=== PATIENT | female | born 1935 | race Caucasian/White ===

== ENCOUNTER → 2018-02-09 | Outpatient (CLI) | payer MEDICARE, OTHER ==
--- NOTE | 2018-02-10 09:42 | XCELERA REPORT ---
[address] [address] Transthoracic Echocardiogram Report Name: AMBAR ENCINAS Age: 82 yrs Gender: Female : 1935 Patient Status: Outpatient Patient Location: Study Date: 02/09/2018 09:38 AM Height: 61 in Weight: 180 lb BSA: 1.8 m2 Procedure: A complete two-dimensional transthoracic echocardiogram was performed (2D, M-mode, spectral and color flow Doppler). The study was technically difficult with many images being suboptimal in quality. Reason For Study: SOB Ordering Physician: MIESHA ERNST Performed By: Hanh Mccullough Interpretation Summary The study was technically difficult with many images being suboptimal in quality. LV diastolic function could not be adequately assessed due to atrial fibrilation. Left ventricular systolic function is borderline reduced. The Ejection Fraction estimate is 50-55% The left ventricle is grossly normal size. There is mild concentric left ventricular hypertrophy. Regional wall motion abnormalities cannot be excluded due to limited visualization. The right ventricle is grossly normal size. The right ventricular systolic function is normal. The right atrium is mild to moderately dilated. The left atrium is mildly dilated. There is no mitral valve stenosis. There is a trace amount of mitral regurgitation There is no aortic valve stenosis There is a mild to moderate amount of aortic regurgitation There is a trace or physiologic amount of tricuspid regurgitation Tricuspid regurgitation jet envelope not well defined to measure RV systolic pressure accurately. The aortic root is not well visualized but is probably normal size. The inferior vena cava appeared normal and decreased > 50% with respiration (RAP 5-10 mmHg) There is no pericardial effusion. MMode/2D Measurements & Calculations RVDd: 2.7 cm LVIDd: 4.2 cm FS: 27.9 % Ao root diam: 2.8 cm IVSd: 1.2 cm LVIDs: 3.0 cm EDV(Teich): 79.2 ml LVPWd: 1.1 cm ESV(Teich): 36.1 ml Ao root area: 6.1 cm2 EF(Teich): 54.5 % LVOT diam: 1.9 cm LVOT area: 2.8 cm2 Doppler Measurements & Calculations MV E max mirella: MV dec slope: Ao V2 max: AI max mirella: 82.9 cm/sec 418.0 cm/sec2 145.0 cm/sec 425.6 cm/sec MV A max mirella: MV dec time: Ao max PG: AI max P.6 cm/sec 0.20 sec 8.4 mmHg 72.4 mmHg MV E/A: 2.8 FRED(V,D): 2.3 cm2AI dec slope: 112.1 cm/sec2 AI P1/2t: 1112 msec LV V1 max PG: PA V2 max: TR max mirella: 5.9 mmHg 62.8 cm/sec 239.5 cm/sec LV V1 max: PA max P.6 mmHg TR max P.2 cm/sec 23.1 mmHg Left Ventricle The left ventricle is grossly normal size. There is mild concentric left ventricular hypertrophy. Left ventricular systolic function is borderline reduced. The Ejection Fraction estimate is 50-55%. LV diastolic function could not be adequately assessed due to atrial fibrilation. Regional wall motion abnormalities cannot be excluded due to limited visualization. Right Ventricle The right ventricle is grossly normal size. There is normal right ventricular wall thickness. The right ventricular systolic function is normal. Atria The right atrium is mild to moderately dilated. The left atrium is mildly dilated. Interarterial septum not well visualized and not well dopplered. Cannot comment on ASD/PFO presence. Mitral Valve The mitral valve is grossly normal. There is no mitral valve stenosis. There is a trace amount of mitral regurgitation. Aortic Valve The aortic valve is grossly normal. There is no aortic valve stenosis. There is a mild to moderate amount of aortic regurgitation. Tricuspid Valve The tricuspid valve is not well visualized, but is grossly normal. There is no tricuspid stenosis. There is a trace or physiologic amount of tricuspid regurgitation. Tricuspid regurgitation jet envelope not well defined to measure RV systolic pressure accurately. Pulmonic Valve The pulmonic valve is not well visualized. Great Vessels The aortic root is not well visualized but is probably normal size. The inferior vena cava appeared normal and decreased > 50% with respiration (RAP 5-10 mmHg). Effusions There is no pericardial effusion. : MIESHA ERNST > Desire Brooks
== END ==
LOC: SP 09:24
PROVIDERS: ATTEND Specialist
DX: R06.02 Shortness of breath (principal)
CPT/HCPCS: 93306

== ENCOUNTER → 2018-09-23 | Outpatient (CLI) | payer MEDICARE, OTHER ==
--- NOTE | 2018-09-23 13:51 | RADIOLOGY REPORT (SQ) ---
EXAM DESCRIPTION: CHEST PA/LATERAL COMPLETED DATE/TIME: 09/23/2018 1:43 pm REASON FOR STUDY: CHEST PAIN,UNSPECIFIED TYPE; LEFT ARM PAIN COMPARISON: None. EXAM PARAMETERS: NUMBER OF VIEWS: two views TECHNIQUE: Digital Frontal and Lateral radiographic views of the chest acquired. RADIATION DOSE: NA LIMITATIONS: none FINDINGS: LUNGS AND PLEURA: No opacities, masses or pneumothorax. No pleural effusion. MEDIASTINUM AND HILAR STRUCTURES: No masses or contour abnormalities. HEART AND VASCULAR STRUCTURES: Cardiac silhouette is enlarged. A tortuous thoracic aorta is identifi ed. BONES: No acute findings. HARDWARE: None in the chest. OTHER: No other significant finding. IMPRESSION: Cardiomegaly. No acute consolidations or pleural effusions are identified. TECHNICAL DOCUMENTATION: JOB ID: [id number] [employer]- All Rights Reserved Reading location - IP/workstation name: [email or web address]
--- NOTE | 2018-09-23 13:53 | RADIOLOGY REPORT (SQ) ---
EXAM DESCRIPTION: SHOULDER LEFT 2 OR MORE VIEWS COMPLETED DATE/TIME: 09/23/2018 1:44 pm REASON FOR STUDY: CHEST PAIN,UNSPECIFIED TYPE; LEFT ARM PAIN R07.9 CHEST PAIN, UNSPECIFIED M79.602 PAIN IN LEFT ARM COMPARISON: None. NUMBER OF VIEWS: Three views. TECHNIQUE: Internal rotation, external rotation, and Y view images acquired of the left shoulder. LIMITATIONS: None. FINDINGS: MINERALIZATION: Normal. BONES: No acute fracture or dislocation. No worrisome bone lesions. JOINTS: Degenerative changes are identified at the level of the glenohumeral joint. VISUALIZED LUNGS AND RIBS: No pneumothorax. No rib fracture. SOFT TISSUES: No radiopaque foreign body. OTHER: No other significant finding. IMPRESSION: Degenerative changes without evidence for fracture. TECHNICAL DOCUMENTATION: JOB ID: [id number] [employer]- All Rights Reserved Reading location - IP/workstation name: [email or web address]
[2018-09-23 14:12] LABS: ABSOLUTE EOSINOPHILS # (AUTO) 0.2 10^3/uL (0.0-0.6); ABSOLUTE LYMPHOCYTES (AUTO) 1.5 10^3/uL (0.5-4.7); ABSOLUTE MONOCYTES (AUTO) 0.5 10^3/uL (0.1-1.4); ABSOLUTE NEUT (AUTO) 4.6 10^3/uL (1.7-8.2); BASOPHILS % (AUTO) 0.6 % (0-2); EOSINOPHILS % (AUTO) 2.7 % (0-6); HEMATOCRIT 38.1 % (36.0-47.0); HEMOGLOBIN 12.7 g/dL (12.0-15.5); LYMPHOCYTES % (AUTO) 22.4 % (13-45); MEAN CORPUSCULAR HEMOGLOBIN 29.8 pg (27.0-33.4); MEAN CORPUSCULAR HGB CONC 33.2 g/dL (32.0-36.0); MEAN CORPUSCULAR VOLUME 90 fl (80-97); MONOCYTES % (AUTO) 6.8 % (3-13); PLATELET COUNT 181 10^3/uL (150-450); RED BLOOD COUNT 4.24 10^6/uL (3.72-5.28); RED CELL DISTRIBUTION WIDTH 13.8 % (11.5-14.0); SEGMENTED NEUTROPHILS % (AUTO) 67.5 % (42-78); TOTAL CELLS COUNTED % (AUTO) 100 %; WHITE BLOOD COUNT 6.8 10^3/uL (4.0-10.5)
[2018-09-23 14:34] LABS: ALANINE AMINOTRANSFERASE 15 U/L (9-52); ALBUMIN 3.6 g/dL (3.5-5.0); ALKALINE PHOSPHATASE 93 U/L (38-126); ANION GAP 8 (5-19); ASPARTATE AMINO TRANSFERASE 20 U/L (14-36); BILIRUBIN,DIRECT 0.3 mg/dL (0.0-0.4); BILIRUBIN,TOTAL 0.9 mg/dL (0.2-1.3); BLOOD UREA NITROGEN 23 mg/dL (7-20); CALCIUM 9.7 mg/dL (8.4-10.2); CARBON DIOXIDE 28 mmol/L (22-30); CHLORIDE 107 mmol/L (98-107); CREATINE KINASE 40 U/L (30-135); GLUCOSE 92 mg/dL (75-110); POTASSIUM 4.3 mmol/L (3.6-5.0); SODIUM 143.2 mmol/L (137-145); TOTAL PROTEIN 6.6 g/dL (6.3-8.2)
[2018-09-23 14:43] LABS: CREATINE KINASE MB 0.46 ng/mL (<4.55)
[2018-09-23 14:50] LABS: TROPONIN I < 0.012 ng/mL
== END ==
LOC: OD 12:59
PROVIDERS: ATTEND Physician Assistant
DX: R07.9 Chest pain, unspecified (principal); M79.602 Pain in left arm
CPT/HCPCS: 36415; 71046; 80053; 82550; 82553; 84484; 85025

== ENCOUNTER → 2018-12-11 | Outpatient (CLI) | payer MEDICARE, OTHER ==
--- NOTE | 2018-12-11 10:16 | RADIOLOGY REPORT (SQ) ---
EXAM DESCRIPTION: T SPINE AP/LAT COMPLETED DATE/TIME: 12/11/2018 10:08 am REASON FOR STUDY: M54.4, LOW BACK PAIN M54.5 LOW BACK PAIN COMPARISON: None. NUMBER OF VIEWS: Two views. TECHNIQUE: AP and lateral radiographic images acquired of the thoracic spine. LIMITATIONS: None. FINDINGS: MINERALIZATION: Normal. ALIGNMENT: There is mild scoliosis with concavity toward the left. VERTEBRAE: No fracture or bone lesion. Maintained height, normal segmentation. DISCS: Multilevel disc space narrowing with osteophytes. HARDWARE: None in the spine. MEDIASTINUM AND SOFT TISSUES: Normal heart size and aortic contour. No soft tissue abnormality. VISUALIZED LUNG JUAN: Clear. OTHER: No other significant finding. IMPRESSION: SPONDYLOSIS WITHOUT BONE LESION OR FRACTURE. TECHNICAL DOCUMENTATION: JOB ID: [id number] [employer]- All Rights Reserved Reading location - IP/workstation name: [email or web address]
--- NOTE | 2018-12-11 10:16 | RADIOLOGY REPORT (SQ) ---
EXAM DESCRIPTION: LUMBAR SPINE COMPLETE COMPLETED DATE/TIME: 12/11/2018 10:08 am REASON FOR STUDY: M54.4, LOW BACK PAIN M54.5 LOW BACK PAIN COMPARISON: 09/19/2017 NUMBER OF VIEWS: Five views including obliques. TECHNIQUE: AP, lateral, oblique, and sacral radiographic images acquired of the lumbar spine. LIMITATIONS: None. FINDINGS: MINERALIZATION: Normal. SEGMENTATION: Normal. No transitional anatomy. ALIGNMENT: There is straightening of the normal lumbar lordosis. VERTEBRAE: Maintained height. No fracture or worrisome bone lesion. DISCS: Multilevel disc space narrowing with osteophytes. POSTERIOR ELEMENTS: Pedicles and facets are intact. No pars defect or posterior arch defects. Facet arthropathy is present. HARDWARE: None in the spine. PARASPINAL SOFT TISSUES: Normal. PELVIS: Intact as visualized. No fractures or worrisome bone lesions. SI joints intact. OTHER: No other significant finding. IMPRESSION: SPONDYLOSIS WITHOUT BONE LESION OR FRACTURE. TECHNICAL DOCUMENTATION: JOB ID: [id number] [employer]- All Rights Reserved Reading location - IP/workstation name: [email or web address]
== END ==
LOC: OD 09:25
PROVIDERS: ATTEND Family Medicine
DX: M54.5 Low back pain (principal)
CPT/HCPCS: 72070; 72110

== ENCOUNTER → 2019-01-11 | Outpatient (CLI) | payer MEDICARE, OTHER ==
--- NOTE | 2019-01-13 23:51 | XCELERA REPORT ---
[address] [address] Transthoracic Echocardiogram Report Name: AMBAR ENCINAS Age: 83 yrs Gender: Female : 1935 Patient Status: Outpatient Patient Location: RAD Study Date: 01/11/2019 02:05 PM Height: 61 in Weight: 160 lb BSA: 1.7 m2 Procedure: A two-dimensional transthoracic echocardiogram with color flow Doppler was performed. Study Quality: Fair. Reason For Study: AR I35.1 History: AR I35.1. Ordering Physician: LAURA ERNST Performed By: Brenda Fischer Interpretation Summary The left ventricle is normal in size. There is normal left ventricular wall thickness. LV EF is 55% Left ventricular systolic function is low normal. Doppler measurements suggest normal left ventricular diastolic function The left ventricular wall motion is normal. There is no thrombus. NO ASD, VSD ,or PFO seen. The right ventricle is normal in size and function. The right atrium is mild to moderately dilated. The left atrium is moderately dilated. There is no evidence of mitral valve prolapse. There is no vegetation seen on the mitral valve. There is no mitral valve stenosis. There is a moderate amount of mitral regurgitation There is no aortic valvular vegetation. There is no aortic valve stenosis There is no LVOT obstruction. There is a mild amount of aortic regurgitation There is no tricuspid stenosis. There is a moderate amount of tricuspid regurgitation There is mild pulmonary hypertension by echo RVSP is 36 to 41 mm of Hg , with RA mean of 5 to 10.There is most likely undersampling of TR jet resulting in a lower RVSP. There is no pulmonic valvular stenosis. There is a trace amount of pulmonic regurgitation The aortic root is normal size. The inferior vena cava appeared normal and decreased > 50% with respiration (RAP 5-10 mmHg) There is no pericardial effusion. MMode/2D Measurements & Calculations RVDd: 3.0 cm LVIDd: 5.3 cm FS: 29.6 % Ao root diam: 2.6 cm IVSd: 1.1 cm LVIDs: 3.7 cm EDV(Teich): 136.2 ml Ao root area: 5.2 cm2 LVPWd: 1.1 cm ESV(Teich): 59.6 ml EF(Teich): 56.2 % Doppler Measurements & Calculations MV E max mirella: MV dec slope: Ao V2 max: AI max mirella: 89.3 cm/sec 518.5 cm/sec2 143.4 cm/sec 456.4 cm/sec MV A max mirella: MV dec time: Ao max PG: AI max P.1 cm/sec 0.17 sec 8.2 mmHg 83.3 mmHg MV E/A: 2.2 AI dec slope: 97.8 cm/sec2 AI P1/2t: 1366 msec LV V1 max PG: PA V2 max: TR max mirella: 4.4 mmHg 87.5 cm/sec 277.0 cm/sec LV V1 max: PA max P.1 mmHg TR max P.3 cm/sec 30.7 mmHg LV dP/dt: 1074 mmHg/s Left Ventricle The left ventricle is normal in size. There is normal left ventricular wall thickness. LV EF is 55%. Left ventricular systolic function is low normal. Doppler measurements suggest normal left ventricular diastolic function. The left ventricular wall motion is normal. There is no thrombus. NO ASD, VSD ,or PFO seen. Right Ventricle The right ventricle is normal in size and function. Atria The right atrium is mild to moderately dilated. The left atrium is moderately dilated. Mitral Valve There is no evidence of mitral valve prolapse. There is no vegetation seen on the mitral valve. There is no mitral valve stenosis. There is a moderate amount of mitral regurgitation. Aortic Valve There is no aortic valvular vegetation. There is no aortic valve stenosis. There is no LVOT obstruction. There is a mild amount of aortic regurgitation. Tricuspid Valve There is no tricuspid stenosis. There is a moderate amount of tricuspid regurgitation. There is mild pulmonary hypertension by echo. RVSP is 36 to 41 mm of Hg , with RA mean of 5 to 10.There is most likely undersampling of TR jet resulting in a lower RVSP. Pulmonic Valve There is no pulmonic valvular stenosis. There is a trace amount of pulmonic regurgitation. Great Vessels The aortic root is normal size. The inferior vena cava appeared normal and decreased > 50% with respiration (RAP 5-10 mmHg). Effusions There is no pericardial effusion. : LAURA ERNST > Laura Ernst
== END ==
LOC: RAD 14:25
PROVIDERS: ATTEND Specialist
DX: I35.1 Nonrheumatic aortic (valve) insufficiency (principal)
CPT/HCPCS: 93306

== ENCOUNTER → 2019-02-18 | Outpatient (CLI) | payer MEDICARE, OTHER ==
[2019-02-18 09:35] LABS: HEMOGLOBIN 12.3 g/dL (12.0-15.5); MEAN CORPUSCULAR HGB CONC 33.1 g/dL (32.0-36.0); MEAN CORPUSCULAR VOLUME 91 fl (80-97); PLATELET COUNT 180 10^3/uL (150-450); RED BLOOD COUNT 4.09 10^6/uL (3.72-5.28); RED CELL DISTRIBUTION WIDTH 14.1 % (11.5-14.0); WHITE BLOOD COUNT 5.7 10^3/uL (4.0-10.5)
[2019-02-18 09:59] LABS: ANION GAP 10 (5-19); BLOOD UREA NITROGEN 21 mg/dL (7-20); CALCIUM 9.6 mg/dL (8.4-10.2); CARBON DIOXIDE 25 mmol/L (22-30); CHLORIDE 107 mmol/L (98-107); GLUCOSE 87 mg/dL (75-110); POTASSIUM 4.4 mmol/L (3.6-5.0); SODIUM 141.8 mmol/L (137-145)
== END ==
LOC: OD 09:03
PROVIDERS: ATTEND Internal Medicine Nephrology
DX: I12.9 Hypertensive chronic kidney disease with stage 1 through stage 4 chronic kidney disease, or unspecified chronic kidney disease (principal); N18.3 Chronic kidney disease, stage 3 (moderate)
CPT/HCPCS: 36415; 80048; 85027

== ENCOUNTER → 2019-08-26 | Outpatient (CLI) | payer MEDICARE, OTHER ==
[2019-08-26 10:26] LABS: ABSOLUTE EOSINOPHILS # (AUTO) 0.3 10^3/uL (0.0-0.6); ABSOLUTE LYMPHOCYTES (AUTO) 1.7 10^3/uL (0.5-4.7); ABSOLUTE MONOCYTES (AUTO) 0.3 10^3/uL (0.1-1.4); ABSOLUTE NEUT (AUTO) 2.8 10^3/uL (1.7-8.2); BASOPHILS % (AUTO) 0.7 % (0-2); EOSINOPHILS % (AUTO) 5.4 % (0-6); HEMATOCRIT 41.7 % (36.0-47.0); HEMOGLOBIN 13.8 g/dL (12.0-15.5); LYMPHOCYTES % (AUTO) 33.4 % (13-45); MEAN CORPUSCULAR HEMOGLOBIN 30.3 pg (27.0-33.4); MEAN CORPUSCULAR HGB CONC 33.1 g/dL (32.0-36.0); MEAN CORPUSCULAR VOLUME 92 fl (80-97); MONOCYTES % (AUTO) 5.6 % (3-13); PLATELET COUNT 181 10^3/uL (150-450); RED BLOOD COUNT 4.55 10^6/uL (3.72-5.28); SEGMENTED NEUTROPHILS % (AUTO) 54.9 % (42-78); TOTAL CELLS COUNTED % (AUTO) 100 %; WHITE BLOOD COUNT 5.1 10^3/uL (4.0-10.5)
[2019-08-26 10:54] LABS: ANION GAP 6 (5-19); BLOOD UREA NITROGEN 21 mg/dL (7-20); CALCIUM 9.9 mg/dL (8.4-10.2); CARBON DIOXIDE 28 mmol/L (22-30); CHLORIDE 108 mmol/L (98-107); GLUCOSE 83 mg/dL (75-110)
== END ==
LOC: OD 09:07
PROVIDERS: ATTEND Internal Medicine Nephrology
DX: I12.9 Hypertensive chronic kidney disease with stage 1 through stage 4 chronic kidney disease, or unspecified chronic kidney disease (principal); N18.3 Chronic kidney disease, stage 3 (moderate)
CPT/HCPCS: 36415; 80048; 85025

== ENCOUNTER → 2019-11-25 | Outpatient (CLI) | payer MEDICARE, OTHER ==
[2019-11-25 14:31] LABS: ABSOLUTE EOSINOPHILS # (AUTO) 0.2 10^3/uL (0.0-0.6); ABSOLUTE LYMPHOCYTES (AUTO) 1.6 10^3/uL (0.5-4.7); ABSOLUTE MONOCYTES (AUTO) 0.4 10^3/uL (0.1-1.4); ABSOLUTE NEUT (AUTO) 4.3 10^3/uL (1.7-8.2); BASOPHILS % (AUTO) 0.5 % (0-2); HEMATOCRIT 39.7 % (36.0-47.0); HEMOGLOBIN 13.5 g/dL (12.0-15.5); MEAN CORPUSCULAR HGB CONC 33.9 g/dL (32.0-36.0); MEAN CORPUSCULAR VOLUME 91 fl (80-97); MONOCYTES % (AUTO) 5.7 % (3-13); PLATELET COUNT 196 10^3/uL (150-450); RED BLOOD COUNT 4.35 10^6/uL (3.72-5.28); RED CELL DISTRIBUTION WIDTH 13.5 % (11.5-14.0); SEGMENTED NEUTROPHILS % (AUTO) 65.8 % (42-78); TOTAL CELLS COUNTED % (AUTO) 100 %; WHITE BLOOD COUNT 6.6 10^3/uL (4.0-10.5)
[2019-11-25 14:54] LABS: ALBUMIN 3.7 g/dL (3.5-5.0); ALKALINE PHOSPHATASE 107 U/L (38-126); ANION GAP 9 (5-19); ASPARTATE AMINO TRANSFERASE 21 U/L (14-36); BILIRUBIN,DIRECT 0.1 mg/dL (0.0-0.4); BILIRUBIN,TOTAL 0.9 mg/dL (0.2-1.3); BLOOD UREA NITROGEN 25 mg/dL (7-20); CALCIUM 9.6 mg/dL (8.4-10.2); CARBON DIOXIDE 23 mmol/L (22-30); CHLORIDE 109 mmol/L (98-107); GLUCOSE 80 mg/dL (75-110); POTASSIUM 4.2 mmol/L (3.6-5.0); TOTAL PROTEIN 6.8 g/dL (6.3-8.2)
--- NOTE | 2019-11-25 14:57 | RADIOLOGY REPORT (SQ) ---
EXAM DESCRIPTION: ACUTE ABDOMEN SERIES COMPLETED DATE/TIME: 11/25/2019 1:52 pm REASON FOR STUDY: GENERALIZED ABD. PAIN R10.84 GENERALIZED ABDOMINAL PAIN COMPARISON: 10/28/2014 NUMBER OF VIEWS: Three views. TECHNIQUE: Frontal chest, supine abdomen and upright/decubitus abdomen radiographic images acquired. LIMITATIONS: None. FINDINGS: CHEST: Tortuosity of the descending aorta. 6 mm nodule just above the right hemidiaphragm . FREE AIR: None. No abnormal gas collections. BOWEL GAS PATTERN: Nonobstructive gas pattern. Moderate retained stool. CALCIFICATIONS: No suspicious calcifications. HARDWARE: None in the abdomen. SOFT TISSUES: No gross mass or suggestion of organomegaly. BONES: Lower lumbar degenerative disc disease and spondylosis. OTHER: No other significant finding. IMPRESSION: Constipation. Lumbar degenerative changes. 6 mm pulmonary nodule. Tortuous descending aorta. COMMENT: FLEISCHNER CRITERIA FOR FOLLOW-UP OF PULMONARY NODULES Incidentally detected new nodules in persons 35 or older. HIGH RISK: History of smoking or other known risk factors. 6-8 mm single solid nodule: LOW RISK: CT 6-12 mo; then consider CT 18-24 mo. HIGH RISK: CT 6-12 mo; t hen CT 18-24 mo. TECHNICAL DOCUMENTATION: JOB ID: [id number] 2010 [employer]- All Rights Reserved Reading location - IP/workstation name: [email or web address]
== END ==
LOC: OD 13:22
PROVIDERS: ATTEND Physician Assistant
DX: R10.84 Generalized abdominal pain (principal)
CPT/HCPCS: 36415; 74022; 80053; 83690; 85025

== ENCOUNTER → 2020-08-24 | Outpatient (CLI) | payer MEDICARE, OTHER ==
--- NOTE | 2020-08-24 12:10 | RADIOLOGY REPORT (SQ) ---
EXAM DESCRIPTION: CT CHEST WITHOUT IMAGES COMPLETED DATE/TIME: 08/24/2020 7:41 am REASON FOR STUDY: SOLITARY PULMONARY NODULE R91.1 SOLITARY PULMONARY NODULE COMPARISON: 10/25/2016, 04/08/2018 TECHNIQUE: CT scan performed of the chest without intravenous contrast. Images reviewed with lung, soft tissue and bone windows. Reconstructed coronal and sagittal MPR images reviewed. All images st ored on PACS. All CT scanners at this facility use dose modulation, iterative reconstruction, and/or weight based d osing when appropriate to reduce radiation dose to as low as reasonably achievable (ALARA). [facility]: Dose Right [facility]: CareDose [facility]: Dose Right [facility]: Teradose 4D [facility]: Prime Grid RADIATION DOSE: CT Rad equipment meets quality standard of care and radiation dose reduction techniq ues were employed. CTDIvol: 5.8 mGy. DLP: 229 mGy-cm. mGy. LIMITATIONS: No technical limitations. FINDINGS: LUNGS AND PLEURA: Stable nodules since prior from 10/25/2016. Largest left lower lobe 12 m m image 49. No new nodules. HILAR AND MEDIASTINAL STRUCTURES: No identified masses or abnormal nodes. No obvious aneurysm. HEART AND VASCULAR STRUCTURES: No aneurysm. No pericardial effusion. UPPER ABDOMEN: No significant findings. Limited exam. THYROID AND OTHER SOFT TISSUES: No masses. No adenopathy. BONES: No significant finding. HARDWARE: None in the chest. OTHER: No other significant findings. IMPRESSION: Stable pulmonary nodules. TECHNICAL DOCUMENTATION: JOB ID: [id number] Quality ID # [id number]: Final reports with documentation of one or more dose reduction techniques (e.g., Au tomated exposure control, adjustment of the mA and/or kV according to patient size, use of iterative reconstruction technique) 2010 [employer]- All Rights Reserved Reading location - IP/workstation name: [email or web address]
== END ==
LOC: RAD 07:29
PROVIDERS: ATTEND Family Medicine
DX: R91.1 Solitary pulmonary nodule (principal)
CPT/HCPCS: 71250

== ENCOUNTER 2020-10-17 05:02 | Emergency (ER) | payer MEDICARE, OTHER ==
[2020-10-17] MEDS ORDERED: ACETAMINOPHEN 325 MG TABLET PO ONE (05:47)
[2020-10-17] MEDS ORDERED: OXYCODONE HCL IR 5 MG TABLET PO ONE (06:52)
--- NOTE | 2020-10-17 06:56 | ER Document Report ---
ED Fall - General Chief Complaint: Fall Injury Stated Complaint: FALL INJURY Time Seen by Provider: 10/17/20 06:46 Primary Care Provider: MACIEJ BURCH MD [Primary Care Provider] - Follow up as needed TRAVEL OUTSIDE OF THE [place] IN LAST 30 DAYS: No - HPI Notes: Fell at home 2 days ago while she was trying to sit down on her couch. Landed on her right side. No loss of consciousness. Has persistent pain in her right lateral ribs, over her right hip and pelvis, and in her right knee. She is relatively weak and has an unsteady gait at baseline and uses a walker all the time. She is accompanied today by her . She denies any use of blood thinners. She has had no syncope. She denies any chest pain or palpitations. It was purely a mechanical fall. She is otherwise her usual state of health. - Related data Allergies/Adverse Reactions: alendronate sodium [From Fosamax] Allergy (Severe, Verified 10/17/20 05:37) ? Heparin Analogues [Heparin Agents] Allergy (Severe, Verified 10/17/20 05:37) phlebitis sulfamethoxazole [From Septra] Allergy (Severe, Verified 10/17/20 05:37) swelling trimethoprim [From Septra] Allergy (Severe, Verified 10/17/20 05:37) swelling dust Allergy (Severe, Uncoded 07/28/18 09:34) sinuses Past Medical History - General Information source: Patient, Relative - Social History Smoking Status: Never Smoker Frequency of alcohol use: None Drug Abuse: None Family History: Reviewed & Not Pertinent - Medical History Medical History: Other Notes: Past medical history as documented in the E HR is reviewed. - Past Medical History Cardiac Medical History: Reports: Hx Atrial Fibrillation, Hx Coronary Artery Disease, Hx Hypercholesterolemia, Hx Hypertension - on meds Denies: Hx Heart Attack Pulmonary Medical History: Reports: Hx COPD - mild Denies: Hx Asthma, Hx Bronchitis, Hx Pneumonia, Hx Tuberculosis Neurological Medical History: Denies: Hx Cerebrovascular Accident, Hx Seizures Renal/ Medical History: Denies: Hx Peritoneal Dialysis GI Medical History: Reports: Hx Gastroesophageal Reflux Disease Musculoskeletal Medical History: Reports Hx Arthritis - "all over" Psychiatric Medical History: Reports: Hx Depression Past Surgical History: Reports: Hx Abdominal Surgery - hernia, umbilical hernia, Hx Cholecystectomy, Hx Hysterectomy, Hx Orthopedic Surgery - left foot with pins, Hx Tonsillectomy - Immunizations Hx Diphtheria, Pertussis, Tetanus Vaccination: Yes Hx Pneumococcal Vaccination: 10/13/09 Review of Systems - Review of Systems Notes: All other systems are reviewed and are negative or noncontributory except as noted in the present illness. Physical Exam - Vital signs Vitals: Temp Pulse BP Pulse Ox 97.6 F 76 181/88 H 98 10/17/20 05:18 10/17/20 05:18 10/17/20 05:18 10/17/20 05:18 - Notes Notes: General: Pleasant elderly alert female sitting in a wheelchair in some discomfort but no acute physiologic distress. Vital signs and nursing documentation are reviewed. HEENT: Grossly normal to inspection. Neck: Full range of motion, nontender to palpation. Chest: Tender over the right lateral chest wall. No crepitus or step-off. No ecchymosis noted. Lungs clear to auscultation all foster. Heart: Regular rate and rhythm no murmur rub or gallop. Abdomen: Obese soft nontender. Pelvis: Stable, tender over the right iliac crest and over the right greater trochanter. Extremities: Without clubbing cyanosis or edema. Mild tenderness to palpation of the right knee. Otherwise unremarkable. Skin: Warm moist good turgor no rashes. Neuro: No focal neuro deficits noted. Course - Re-evaluation Re-evalutation: 10/17/20 08:33 Patient was given oxycodone with some improvement of her pain. X-rays were done and showed no evidence of rib fracture, pneumothorax, pelvic or hip fracture, or knee injury. I discussed all results with the patient and her . I emphasized rest at home with conservative treatment. She should follow-up in a few days with her primary care provider if she is not improving. Return to the emergency department if any concerning symptoms develop. - Vital Signs Vital signs: Temp Pulse Resp BP Pulse Ox 97.6 F 76 181/88 H 98 10/17/20 05:18 10/17/20 05:18 10/17/20 05:18 10/17/20 05:18 - Laboratory Results Critical Laboratory Results Reviewed: No Critical Results - Radiology Results Radiology Results Interpreted: 10/17/20 08:33 Knee X-Ray 10/17/20 00:00 IMPRESSION: No acute fracture or dislocation of the right knee. Moderate tricompartmental osteoarthritis. Moderate osteopenia. Pelvis X-Ray 10/17/20 06:55 IMPRESSION: NEGATIVE STUDY OF THE PELVIS. Ribs w/Chest X-Ray 10/17/20 06:55 IMPRESSION: Old healed right-sided rib fractures. No acute displaced fractures. No pneumothorax. Critical Radiology Results Reviewed: No Critical Results Discharge - Discharge Clinical Impression: Contusion, multiple sites Condition: Stable Disposition: HOME, SELF-CARE Instructions: Contusion ([facility]), Rib Contusion ([facility]) Additional Instructions: Your x-rays did not show any broken bones or collapsed lung or internal injury. The fall has caused multiple bruises it will take several days for everything to heal. You have been given a prescription for a small amount of a pain medicine called tramadol. Please take that according to label directions. Follow-up with your primary care doctor in 2 to 3 days for recheck if you are not improving. Return to the emergency department sooner if any concerning symptoms develop. Prescriptions: Tramadol HCl [Ultram 50 mg Tablet] 50 mg PO Q4HP PRN #12 tab PRN Reason: Referrals: MACIEJ BURCH MD [Primary Care Provider] - Follow up as needed
--- NOTE | 2020-10-17 08:07 | RADIOLOGY REPORT (SQ) ---
EXAM DESCRIPTION: KNEE RIGHT 2 VIEWS IMAGES COMPLETED DATE/TIME: 10/17/2020 6:32 am REASON FOR STUDY: fall, pain COMPARISON: None. NUMBER OF VIEWS: Two views TECHNIQUE: AP and cross-table lateral radiographic images acquired of the right knee. LIMITATIONS: None. FINDINGS: MINERALIZATION: Osteopenia. BONES: No acute fracture or dislocation. No worrisome bone lesions. JOINT: Small marginal osteophytes. Joint space narrowing. Bony spurring of the tibial spines. No j oint effusion or intra-articular loose body. SOFT TISSUES: No soft tissue swelling. No radio-opaque foreign body. OTHER: No other significant finding. IMPRESSION: No acute fracture or dislocation of the right knee. Moderate tricompartmental osteoarth ritis. Moderate osteopenia. TECHNICAL DOCUMENTATION: JOB ID: [id number] [employer]- All Rights Reserved Reading location - IP/workstation name: [email or web address]
--- NOTE | 2020-10-17 08:11 | RADIOLOGY REPORT (SQ) ---
EXAM DESCRIPTION: PELVIS AP IMAGES COMPLETED DATE/TIME: 10/17/2020 8:01 am REASON FOR STUDY: Pain s/p fall COMPARISON: None. NUMBER OF VIEWS: One view TECHNIQUE: AP Pelvis LIMITATIONS: None. FINDINGS: MINERALIZATION: Normal. HIPS: No acute fracture or dislocation. No worrisome bone lesions. PELVIS AND SACRUM: No acute fracture or dislocation. No worrisome bone lesions. PUBIS AND ISCHIUM: No acute fracture. LOWER LUMBAR SPINE: Degenerative changes. SOFT TISSUES: No findings. OTHER: No other significant finding. IMPRESSION: NEGATIVE STUDY OF THE PELVIS. COMMENT: Pelvic fractures are often occult on plain radiographs. If strong clinical suspicion for f racture, recommend CT or MR. TECHNICAL DOCUMENTATION: JOB ID: [id number] 2010 [employer]- All Rights Reserved Reading location - IP/workstation name: [email or web address]
--- NOTE | 2020-10-17 08:14 | RADIOLOGY REPORT (SQ) ---
EXAM DESCRIPTION: RIBS RIGHT W/PA CHEST IMAGES COMPLETED DATE/TIME: 10/17/2020 8:01 am REASON FOR STUDY: Pain s/p fall COMPARISON: None. TECHNIQUE: Frontal view of the chest and additional views of the right ribs acquired. NUMBER OF VIEWS: Four view. LIMITATIONS: None. FINDINGS: FRONTAL CXR: Cardiomegaly. No pneumothorax. Mild blunting the costophrenic angles. No d efinite effusions. RIBS: No acute fractures. There is healed fractures laterally on the right including the 9th and 10t h lateral ribs. OTHER: No other significant finding. IMPRESSION: Old healed right-sided rib fractures. No acute displaced fractures. No pneumothorax. COMMENT: SITE OF TRAUMA/COMPLAINT MARKED/STAMP COMPLETED: NO. TECHNICAL DOCUMENTATION: JOB ID: [id number] 2010 [employer]- All Rights Reserved Reading location - IP/workstation name: [email or web address]
[2020-10-17 08:58] VITALS: BP 164/79
== END 2020-10-17 08:45 | disposition home or self-care (01) ==
LOC: ER 05:02
DX: S20.211A Contusion of right front wall of thorax, initial encounter (principal); R55 Syncope and collapse; R07.81 Pleurodynia; R10.2 Pelvic and perineal pain; M25.561 Pain in right knee; R53.1 Weakness; W08.XXXA Fall from other furniture, initial encounter; I48.91 Unspecified atrial fibrillation; I25.10 Atherosclerotic heart disease of native coronary artery without angina pectoris; E78.00 Pure hypercholesterolemia, unspecified; I10 Essential (primary) hypertension; J44.9 Chronic obstructive pulmonary disease, unspecified
CPT/HCPCS: 99284; 73560; 72170; 71101; A9270 ×2